=== PATIENT | female | born 1955 | race Hispanic/Latino ===

== ENCOUNTER 2017-02-06 07:13 | Day surgery (SDC) | payer OTHER ==
[2017-02-06 07:47] VITALS: BMI 29.2
[2017-02-06 08:08] VITALS: TEMP 98
--- NOTE | 2017-02-06 10:14 | CP.SDSHP ---
Same Day Surgery H & P - History Proposed Procedure: Colonoscopy Pre-Op Diagnosis: Polyp surveillance - Previous Medical/Surgical History Cardiac: Hypertension Pulmonary: Emphysema/COPD Previous Surgical History: none - Allergies Allergies: Allergies acetaminophen [From Percocet] Adverse Reaction (Verified 02/06/17 07:47) NAUSEA oxycodone [From Percocet] Adverse Reaction (Verified 02/06/17 07:47) NAUSEA - Current Medications Current Medications: reviewed, per reconciliation - Physical Exam General Appearance: wdwn nad Vital Signs: Vital Signs 02/06/17 07:51 Temperature 98 F Pulse Rate 68 Respiratory 19 Rate Blood Pressure 134/86 O2 Sat by Pulse 97 Oximetry Mental Status: Alert & Oriented x3 Heart: WNL Lungs: WNL GI: WNL - {Optional Preform as Required} Abdomen: WNL - Impression Impression: Polyp surveillance Pt. Evaluated Today:Candidate for Anesthesia & Procedure: Yes - Date & Time Date: 02/06/17 Time: 10:14 Short Stay Discharge - Short Stay Discharge Admitting Diagnosis/Reason for Visit: COLON POLYPS Disposition: HOME/ ROUTINE
[2017-02-06] MEDS ORDERED: Lidocaine Hydrochloride 5 ML INJ ONE (10:16)
[2017-02-06] MEDS ORDERED: Propofol 10 mg/ml Inj (20 ML) ONE ×2 (10:16→10:40)
[2017-02-06] MEDS ORDERED: Lactated Ringer's 500 ML IV ONE ×3 (10:17)
[2017-02-06] MEDS ORDERED: Midazolam 2 MG/2 ML VIAL ONE (10:32)
[2017-02-06 16:31] VITALS: PULSE 65; RESP 19; O2SAT 99
[2017-02-06 16:36] VITALS: BP 137/70
== END 2017-02-06 12:00 | disposition home or self-care (01) ==
LOC: C.ENDO 07:13
PROVIDERS: ATTEND Internal Medicine Gastroenterology
DX: D12.3 Benign neoplasm of transverse colon (principal); D12.4 Benign neoplasm of descending colon; D12.2 Benign neoplasm of ascending colon; K62.1 Rectal polyp; K64.8 Other hemorrhoids
CPT/HCPCS: 45385; 88305; J2250; J2704; J7120